=== PATIENT | female | born 1950 | race Caucasian/White ===

== ENCOUNTER 2021-10-07 09:47 | Inpatient (IN) | payer OTHER, MEDICARE, SELFPAY ==
[~2021-10-07] VITALS: Ht 157.5 cm; Wt 56.7 kg
--- NOTE | 2021-10-07 10:10 | NUR ---
EMT at bedside for EKG
--- NOTE | 2021-10-07 10:10 | NUR ---
pt being assessed by ermd in triage room at this time
[2021-10-07 10:12] VITALS: BP 174/107
--- NOTE | 2021-10-07 10:13 | NUR ---
pt ambulated with assist to bed 11 at this time
[2021-10-07] MEDS ORDERED: ASPIRIN 325 MG TAB PO ONE (10:15)
--- NOTE | 2021-10-07 10:19 | NUR ---
RAD at bedside
--- NOTE | 2021-10-07 10:20 | NUR ---
guera swabbed at this time
--- NOTE | 2021-10-07 10:35 | NUR ---
70 y/o F BIB self from home c/o chest pain x 3 day. 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 Patient reports symptoms 7/10, squeezing/intermittent, radiating to L shoulder. Pt also reports abdominal pain epigastric region x 1 week. Aggrevating with physical exersion; alleviating factors resting. Pt denies fever, chills, SOB, dizziness, headache, dysuria. Abd soft/round/non-tender. Cap refill immediate. Skin pink/warm/dry. 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 Bed locked in lowest position, side rails x 1. Denies meds prior to arrival. PMH: HLD Meds: metoprolol, losartan, atorvastatin, gabapentin NKDA Sx: Denies
--- NOTE | 2021-10-07 10:54 | NUR ---
Blood sample walked to lab and handed to CPT. Susan
--- NOTE | 2021-10-07 11:00 | NUR ---
Family at bedside
[2021-10-07 11:23] LABS: BASOPHILS # (AUTO) 0.1 K/uL (0.00-0.22); BASOPHILS % (AUTO) 2.1 % (0.0-2.0); EOSINOPHILS # (AUTO) 0.1 K/uL (0-0.4); EOSINOPHILS % (AUTO) 1.1 % (0.0-4.0); HEMATOCRIT 41.1 % (36-48); HEMOGLOBIN 12.6 g/dL (12.0-16.0); LYMPHOCYTES # (AUTO) 1.7 K/uL (2.5-16.5); MEAN CORPUSCULAR HEMOGLOBIN 21 pg (27-31); MEAN CORPUSCULAR HGB CONC 31 g/dL (33-37); MONOCYTES # (AUTO) 0.6 K/uL (0.8-1.0); MONOCYTES % (AUTO) 9.2 % (1.7-9.3); NEUTROPHILS # (AUTO) 3.7 K/uL (1.8-7.7); NEUTROPHILS % (AUTO) 59.6 % (42.2-75.2); PLATELET COUNT (AUTO) 265 K/uL (140-450); RED BLOOD CELL COUNT(AUTO) 5.96 MIL/uL (4.20-5.40); RED CELL DISTRIBUTION WIDTH 14.9 % (11.6-13.7); WHITE BLOOD COUNT (AUTO) 6.2 K/uL (4.8-10.8)
--- NOTE | 2021-10-07 11:32 | NUR ---
Patient resting in semi-fowlers position. city engineer in place. Bed locked in lowest position, side rails x 1. Denies SOB, chest pain.
[2021-10-07 12:00] LABS: ALBUMIN 4.1 g/dL (3.4-5.0); ANION GAP 12.6 (8-16); ASPARTATE AMINOTRANSFERASE 21 U/L (15-37); CARBON DIOXIDE 29.5 mmol/L (21-32); CHLORIDE 103 mmol/L (98-107); CREATININE 0.8 mg/dL (0.6-1.3); GLUCOSE 106 mg/dL (74-106); POTASSIUM 4.1 mmol/L (3.5-5.1); SODIUM SERUM 141 mmol/L (136-145); TOTAL BILIRUBIN 0.5 mg/dL (0.0-1.0); UREA NITROGEN, BLOOD 15 mg/dL (7-18)
[2021-10-07] MEDS ORDERED: GABA100C PO (13:44)
[2021-10-07] MEDS ORDERED: METO25TA PO (13:44)
[2021-10-07] MEDS ORDERED: [UNRECOGNIZED DRUG - CODE] PO (13:44)
[2021-10-07] MEDS ORDERED: LOSA100T1 PO (13:44)
[2021-10-07] MEDS ORDERED: ATOR20TA PO (13:44)
--- NOTE | 2021-10-07 13:48 | NUR ---
Patient appears to be resting comfortably in bed. Vital Signs within normal limits. Respirations even and unlabored.
[2021-10-07] MEDS ORDERED: HYDROcodone/APAP 5/325 MG 1 TAB TAB PO PRN (14:30)
[2021-10-07] MEDS ORDERED: MORPHINE SULFATE 2 MG/ML SYR IVP PRN (14:30)
[2021-10-07] MEDS ORDERED: ACETAMINOPHEN 325 MG TAB PO PRN (14:30)
[2021-10-07] MEDS ORDERED: ZOLPIDEM 5 MG TAB PO PRN (14:30)
[2021-10-07] MEDS ORDERED: ONDANSETRON 4 MG/2 ML VIAL IVP PRN (14:30)
--- NOTE | 2021-10-07 14:55 | NUR ---
Patient resting in low-fowlers per request. monitor technician in place. Denies SOB, chest pain. Bed locked in lowest position, side rails x 1.
[2021-10-07 15:08] LABS: MAGNESIUM 2.3 mg/dL (1.8-2.4); PHOSPHORUS 4.1 mg/dL (2.5-4.9)
--- NOTE | 2021-10-07 17:31 | NUR ---
Patient with both eyes closed in semi-fowlers position. Denies CP, SOB. All pt needs met. ekg monitor in place. SpO2 99% HR 68.
--- NOTE | 2021-10-07 19:16 | NUR ---
Report and transfer of care given to RAO Negrete.
--- NOTE | 2021-10-07 19:28 | NUR ---
ASSUMED CARE OF PATIENT
--- NOTE | 2021-10-08 07:30 | NUR ---
REPORT RECEIVED FROM ALETHEA YEH FOR CONTINUITY. A&OX4. SR ON MONITOR. IV SITE RT WRIST 20G, INTACT, PATENT, GOOD BLOOD RETURN. SKIN WARM AND DRY. SAFETY PRECAUTIONS IN PLACE. WILL CONTINUE TO MONITOR.
[2021-10-08 07:45] LABS: BASOPHILS # (AUTO) 0.1 K/uL (0.00-0.22); BASOPHILS % (AUTO) 1.3 % (0.0-2.0); EOSINOPHILS # (AUTO) 0.1 K/uL (0-0.4); EOSINOPHILS % (AUTO) 0.8 % (0.0-4.0); HEMATOCRIT 40.3 % (36-48); HEMOGLOBIN 12.6 g/dL (12.0-16.0); LYMPHOCYTES # (AUTO) 1.7 K/uL (2.5-16.5); MEAN CORPUSCULAR HEMOGLOBIN 22 pg (27-31); MEAN CORPUSCULAR HGB CONC 31 g/dL (33-37); MEAN CORPUSCULAR VOLUME 68.9 fL (80-94); MONOCYTES # (AUTO) 0.6 K/uL (0.8-1.0); MONOCYTES % (AUTO) 8.1 % (1.7-9.3); NEUTROPHILS # (AUTO) 5.2 K/uL (1.8-7.7); NEUTROPHILS % (AUTO) 67.8 % (42.2-75.2); PLATELET COUNT (AUTO) 264 K/uL (140-450); RED BLOOD CELL COUNT(AUTO) 5.85 MIL/uL (4.20-5.40); RED CELL DISTRIBUTION WIDTH 14.6 % (11.6-13.7); WHITE BLOOD COUNT (AUTO) 7.7 K/uL (4.8-10.8)
--- NOTE | 2021-10-08 07:59 | NUR ---
DR CERVANTES AT BEDSIDE EXAMINING PT
[2021-10-08 08:06] LABS: ANION GAP 17.5 (8-16); CARBON DIOXIDE 23.9 mmol/L (21-32); CHLORIDE 102 mmol/L (98-107); CREATININE 0.8 mg/dL (0.6-1.3); GLUCOSE 78 mg/dL (74-106); POTASSIUM 4.4 mmol/L (3.5-5.1); SODIUM SERUM 139 mmol/L (136-145); UREA NITROGEN, BLOOD 15 mg/dL (7-18)
[2021-10-08 08:09] LABS: MAGNESIUM 2.1 mg/dL (1.8-2.4); PHOSPHORUS 4.2 mg/dL (2.5-4.9)
--- NOTE | 2021-10-08 08:33 | NUR ---
PT PROVIDED WITH BREAKFAST TRAY
[2021-10-08] MEDS ORDERED: METOPROLOL 25 MG TAB PO SCH (09:00)
[2021-10-08] MEDS ORDERED: ATORVASTATIN 20 MG TAB PO SCH (09:00)
[2021-10-08] MEDS ORDERED: LOSARTAN 50 MG TAB PO SCH (09:00)
[2021-10-08] MEDS ORDERED: ASPIRIN 81 MG TAB.CHEW PO SCH (09:00)
[2021-10-08] MEDS ORDERED: GABAPENTIN 100 MG CAP PO SCH (09:00)
--- NOTE | 2021-10-08 10:00 | NUR ---
PT ON ROOM AIR, RESPIRATIONS EVEN AND UNLABORED. CHEST RISE IS SYMMETRICAL. WILL CONTINUE TO MONITOR.
[2021-10-08] MEDS ORDERED: ASPI81CT95 PO (12:47)
[2021-10-08 12:59] VITALS: BP 109/78
--- NOTE | 2021-10-08 13:12 | NUR ---
[facility] CALLED, ETA 45 MIN-60 MIN.
[2021-10-08 13:23] VITALS: BP 109/78
--- NOTE | 2021-10-08 13:23 | NUR ---
Patient discharged with v/s stable. Written and verbal after care instructions given and explained. Patient alert, oriented and verbalized understanding of instructions. Ambulatory with steady gait. All questions addressed prior to discharge. ID band removed. Patient advised to follow up with PMD. Rx of ASPIRIN given. Patient educated on indication of medication including possible reaction and side effects. Opportunity to ask questions provided and answered.
[2021-10-08] MEDS ORDERED: carvediloL 6.25 MG TAB PO SCH (21:00)
[2021-10-09] MEDS ORDERED: RIVAROXABAN 10 MG TAB PO SCH (09:00)
[2021-10-09] MEDS ORDERED: hydrOXYzine PAMOATE 25 MG CAP PO SCH (09:00)
[2021-10-09] MEDS ORDERED: ISOSORBIDE MONONITRATE 30 MG TABER PO SCH (09:00)
[2021-10-09] MEDS ORDERED: ASPIRIN 81 MG TAB.CHEW PO SCH (09:00)
[2021-10-09] MEDS ORDERED: lisinopriL 5 MG TAB PO SCH (09:00)
== END 2021-10-08 13:23 | disposition home or self-care (01) | DRG 311 ==
LOC: MED 09:47 → MMU 14:36
PROVIDERS: ADMIT General Practice; ATTEND General Practice
DX: I24.9 Acute ischemic heart disease, unspecified (principal); I10 Essential (primary) hypertension; E78.5 Hyperlipidemia, unspecified; Z20.822 Contact with and (suspected) exposure to COVID-19; Z79.899 Other long term (current) drug therapy
CPT/HCPCS: 36415; 71045; 80048; 80053; 83036; 83735; 83880; 84100; 84443; 84484; 85025; 93005; 99285

== ENCOUNTER 2024-06-10 10:36 | Emergency (ER) | payer MEDICARE, OTHER ==
[~2024-06-10] VITALS: Ht 157.5 cm; Wt 57.3 kg
[~2024-06-10 10:36] MED LIST: ASPI81CT95 PO; ATOR20TA PO; GABA100C PO; LOSA-272 PO; METO25TA PO; [UNRECOGNIZED DRUG - CODE] PO
[2024-06-10 10:43] VITALS: BP 134/86; PULSE 77; RESP 18; TEMP 97.8; O2SAT 98
[2024-06-10] MEDS: MECLIZINE 25 MG TAB PO ONE (11:25)
[2024-06-10] MEDS: NACL 0.9% 1,000 ML IV ONE (11:35)
[2024-06-10 11:45] LABS: BASOPHILS % (AUTO) 0.3 % (0.0-2.0); EOSINOPHILS # (AUTO) 0.1 K/uL (0-0.4); HEMATOCRIT 41.6 % (36-48); HEMOGLOBIN 12.8 g/dL (12.0-16.0); LYMPHOCYTES # (AUTO) 1.3 K/uL (2.5-16.5); LYMPHOCYTES % (AUTO) 24.6 % (20.5-51.1); MEAN CORPUSCULAR HEMOGLOBIN 21 pg (27-31); MEAN CORPUSCULAR HGB CONC 31 g/dL (33-37); MEAN CORPUSCULAR VOLUME 68.3 fL (80-94); MONOCYTES # (AUTO) 0.5 K/uL (0.8-1.0); MONOCYTES % (AUTO) 9.7 % (1.7-9.3); NEUTROPHILS # (AUTO) 3.4 K/uL (1.8-7.7); NEUTROPHILS % (AUTO) 64.4 % (42.2-75.2); PLATELET COUNT (AUTO) 240 K/uL (140-450); RED BLOOD CELL COUNT(AUTO) 6.08 MIL/uL (4.20-5.40); WHITE BLOOD COUNT (AUTO) 5.4 K/uL (4.8-10.8)
[2024-06-10 12:11] LABS: APPEARANCE,URINE CLEAR (CLEAR); BILIRUBIN,URINE NEGATIVE (NEGATIVE); BLOOD, URINE 1+ (NEGATIVE); COLOR,URINE YELLOW (YELLOW); LEUKOCYTE ESTERASE ,URINE TRACE (NEGATIVE); NITRITE, URINE NEGATIVE (NEGATIVE); PROTEIN,URINE NEGATIVE (NEGATIVE); UGLUCOSE NEGATIVE (NEGATIVE); UROBILINOGEN,URINE 0.2 EU/dL (0.2 - 1)
[2024-06-10 12:14] LABS: ANION GAP 9.9 (8-16); CALCIUM 8.9 mg/dL (8.5-10.1); CARBON DIOXIDE 29.7 mmol/L (21-32); CHLORIDE 104 mmol/L (98-107); CREATININE 0.8 mg/dL (0.6-1.3); GLUCOSE 109 mg/dL (74-106); POTASSIUM 4.6 mmol/L (3.5-5.1); SODIUM SERUM 139 mmol/L (136-145); UREA NITROGEN, BLOOD 12 mg/dL (7-18)
[2024-06-10 12:21] LABS: BACTERIA,URINE OCCASSIONAL /HPF (None Seen); RBC,URINE 0-5 /HPF (0-5); SQUAMOUS EPITHELIAL CELL,UR 0-3 (FEW) /LPF (0-3 (FEW)); WBC,URINE 0-5 /HPF (0-5)
[2024-06-10] MEDS ORDERED: IBUP-2213 PO (13:04)
[2024-06-10] MEDS ORDERED: MECL-303 PO (13:04)
[2024-06-10 14:10] VITALS: BP 126/66; PULSE 73; RESP 18; TEMP 36.55848; O2SAT 98
== END 2024-06-10 14:10 | disposition home or self-care (01) ==
LOC: MED 10:36
DX: R42 Dizziness and giddiness (principal); R51.9 Headache, unspecified; E11.9 Type 2 diabetes mellitus without complications; I10 Essential (primary) hypertension; Z79.899 Other long term (current) drug therapy; Z79.82 Long term (current) use of aspirin
CPT/HCPCS: 36415; 70450; 70496; 70498; 80048; 81001; 82948; 85025; 96360; 99285; J8597; Q9967